=== PATIENT | female | born 1990 | race Caucasian/White ===

== ENCOUNTER 2019-04-08 18:38 | Emergency (ER) | payer OTHER ==
[2019-04-08 18:59] VITALS: TEMP 97.8; BMI 33.3
[2019-04-08] MEDS ORDERED: ALBUTEROL SO4 2.5/IPRATROPIUM 0.5 INH SOL 3 ML VIAL.NEB. NEB ONE ×3 (19:35→20:37)
[2019-04-08] MEDS ORDERED: ONDANSETRON 4 MG TABLET PO ONE (19:35)
--- NOTE | 2019-04-08 19:35 | PDOC ---
History of Present Illness - General Chief Complaint: Nausea/Vomiting Stated Complaint: VOMITTING/NAUSEA/ABD/PAIN Time Seen by Provider: 04/08/19 19:30 History Source: Patient - History of Present Illness Initial Comments: 04/08/19 19:38 Chief complaint: Cough, vomiting Patient is a 28-year-old female with history of asthma who states she has been having upper respiratory symptoms for 2 months, has not seen a doctor. Patient states she vomited once yesterday, vomited once again today. Had abdominal pain yesterday, is better but has some epigastric discomfort today. No shortness of breath, no fever. Has not seen a doctor for any the symptoms. GENERAL/CONSTITUTIONAL: No fever, weakness. dizziness HEAD, EYES, EARS, NOSE AND THROAT: No change in vision. No ear pain or discharge. No sore throat. + Congestion CARDIOVASCULAR: No chest pain RESPIRATORY: No shortness of breath, +cough GASTROINTESTINAL: No pain, nausea, vomiting, diarrhea or constipation GENITOURINARY: No dysuria MUSCULOSKELETAL: No neck or back pain SKIN: No rash NEUROLOGIC: No headache, vertigo, loss of consciousness, or loss of sensation. GENERAL: The patient is awake, alert, and fully oriented, in no acute distress. HEAD: Normal with no signs of trauma. EYES: Pupils equal, round and reactive to light, sclera anicteric, conjunctiva clear. ENT: pharynx: no erythema, no exudate, uvula midline NECK: supple CHEST: Minimal bilateral wheezing, nontender, rr ABD: soft, nontender BACK: no tenderness or signs of injury EXTREMITIES: Normal range of motion, no edema. NEUROLOGICAL: Normal speech, normal gait. SKIN: Warm, Dry Past History - Past Medical History Allergies/Adverse Reactions: Allergies Allergy/AdvReac Type Severity Reaction Status Date / Time No Known Allergies Allergy Verified 04/08/19 18:59 Home Medications: Ambulatory Orders Albuterol Sulfate Inhaler - [Ventolin HFA Inhaler -] 2 inh PO Q4H #1 inh COPD: No - Psycho Social/Smoking Cessation Hx Smoking History: Never smoked *Physical Exam - Vital Signs Last Vital Signs Temp Pulse Resp BP Pulse Ox 97.8 F 101 H 18 117/86 99 04/08/19 18:56 04/08/19 18:56 04/08/19 18:56 04/08/19 18:56 04/08/19 18:56 ED Treatment Course - LABORATORY CBC & Chemistry Diagram: 04/08/19 19:44 04/08/19 19:37 Medical Decision Making - Medical Decision Making 04/08/19 19:40 Well-appearing 28-year-old with URI symptoms for 2 months, found to have minimal wheezing, epigastric pain, vomited once with no tenderness. Patient will get DuoNeb treatment, basic labs, test, be reassessed. Patient serum test was positive, patient states her last menses was March 10. Reevaluation of patient says wheezing is better, scant wheezing. Patient's abdominal pain is still present it is very pinpoint in the mid abdomen , likely not related to but will get ultrasound of abdomen and pelvis to evaluate further given that patient has multitude of symptoms in the ER. [id number] Patient is no longer wheezing, patient has no abdominal pain. Awaiting ultrasound results, UA, quantitative hCG is very low at 63. Patient had an elevated white count but patient does not have any fever and does not appear ill. Patient states she was not aware that she was wheezing prior to today and has not been using her inhaler. Patient looks very comfortable and well now 04/08/19 22:35 Patient states she threw up again, and had an episode of diarrhea. Urine is negative for infection. Patient has no abdominal pain or clinically significant findings. Patient will get Zofran after discussion and 1 more liter of fluid. Patient will need to follow-up with [facility] STATISTICIAN given finding of although she may be having a viral illness Discharge - Discharge Information Problems reviewed: Yes Clinical Impression/Diagnosis: Early stage of Vomiting Qualifiers: Vomiting type: unspecified Vomiting Intractability: unspecified Nausea presence : with nausea Qualified Code(s): R11.2 - Nausea with vomiting, unspecified Asthma Qualifiers: Asthma severity: mild Asthma persistence: unspecified Condition: Stable Disposition: HOME - Admission No - Additional Discharge Information Prescriptions: Albuterol Sulfate Inhaler - [Ventolin HFA Inhaler -] 2 inh PO Q4H #1 inh - Follow up/Referral - Patient Discharge Instructions Patient Printed Discharge Instructions: DI for Vomiting -- Adult Additional Instructions: Use albuterol inhaler, 2 puffs every 4 hours as needed for wheezing. You need to follow-up with an [facility] RESOURCE STATISTICIAN in 2 days for repeat blood work and evaluation for your . If you cannot find one, return to the ER on Tuesday for repeat blood work and evaluation Make sure you have taking vitamins this is important for the formation of a normal spinal cord and the developing baby and should be taken even before you find out you are . So please start these tomorrow. Drink plenty of fluids Return to the ER if getting sicker, continuous vomiting, multiple episodes of diarrhea, getting dehydrated, worsening pain or any other concerns. - Post Discharge Activity
[2019-04-08] MEDS ORDERED: ONDANSETRON *ODT* 4 MG TABLET ONE (19:37)
[2019-04-08 20:01] LABS: BASO % 0.5 % (0-2.0); EOS % 0.7 % (0-4.5); HEMATOCRIT 41.7 % (32.4-45.2); HEMOGLOBIN 14.2 GM/dL (10.7-15.3); LYMPH % 14.7 % (8-40); MCH 31.3 pg (25.7-33.7); MCHC 34.1 g/dl (32.0-36.0); MEAN PLT VOLUME 7.7 fl (7.5-11.1); MONO % 5.8 % (3.8-10.2); NEUT % 78.3 % (42.8-82.8); PLATELET COUNT 342 K/MM3 (134-434); RBC 4.53 M/mm3 (3.60-5.2); RDW 12.8 % (11.6-15.6); WHITE BLOOD COUNT 15.2 K/mm3 (4.0-10.0)
[2019-04-08] MEDS ORDERED: SODIUM CHLORIDE 1,000 ML IV STA ×2 (20:22→22:30)
[2019-04-08 20:26] LABS: BILIRUBIN,TOTAL 0.3 mg/dL (0.2-1); BLOOD UREA NITROGEN 13.5 mg/dL (7-18); CALCIUM 9.2 mg/dL (8.5-10.1); CREATININE 0.7 mg/dL (0.55-1.3); POTASSIUM 3.9 mmol/L (3.5-5.1); TOT PROT 7.5 g/dl (6.4-8.2)
[2019-04-08 21:58] LABS: URINE APPEARANCE CLOUDY; URINE BILIRUBIN NEGATIVE (NEGATIVE); URINE COLOR YELLOW; URINE GLUCOSE (UA) NEGATIVE (NEGATIVE); URINE KETONE TRACE (NEGATIVE); URINE LEUK ESTERASE NEGATIVE (NEGATIVE); URINE NITRITE NEGATIVE (NEGATIVE); URINE PROTEIN NEGATIVE (NEGATIVE)
[2019-04-08] MEDS ORDERED: ONDANSETRON 4 MG/2 ML VIAL IVPUSH ONE (22:29)
[2019-04-08] MEDS ORDERED: ONDANSETRON 4 MG/2 ML VIAL ONE (22:43)
[2019-04-09 00:39] VITALS: BP 124/76; PULSE 97
== END 2019-04-09 00:39 | disposition home or self-care (01) ==
LOC: JERFT 18:38
PROC: 3E0F7GC Introduction of Other Therapeutic Substance into Respiratory Tract, Via Natural or Artificial Opening (ICD-10-PCS; principal; 2019-04-08)
PROC: 3E033GC Introduction of Other Therapeutic Substance into Peripheral Vein, Percutaneous Approach (ICD-10-PCS; 2019-04-08)
PROC: 3E0337Z Introduction of Electrolytic and Water Balance Substance into Peripheral Vein, Percutaneous Approach (ICD-10-PCS; 2019-04-08)
DX: R11.2 Nausea with vomiting, unspecified (principal); O26.891 Other specified pregnancy related conditions, first trimester; Z3A.01 Less than 8 weeks gestation of pregnancy
CPT/HCPCS: 36415; 76705-TC; 76817-TC; 80053; 81003; 83690; 84702; 84703; 85025; 99284-25; J7030

== ENCOUNTER 2019-06-27 17:00 | Emergency (ER) | payer OTHER ==
[2019-06-27 17:04] VITALS: BP 102/83; PULSE 98; TEMP 98.2; BMI 33.3
--- NOTE | 2019-06-27 17:57 | PDOC ---
History of Present Illness - General Chief Complaint: Foreign Body (FB) Stated Complaint: EARACHE Time Seen by Provider: 06/27/19 17:16 History Source: Patient Exam Limitations: No Limitations Past History - Travel Traveled outside of the country in the last 30 days: No Close contact w/someone who was outside of country & ill: No - Past Medical History Allergies/Adverse Reactions: Allergies Allergy/AdvReac Type Severity Reaction Status Date / Time No Known Allergies Allergy Verified 06/27/19 17:04 Home Medications: Ambulatory Orders Albuterol Sulfate Inhaler - [Ventolin HFA Inhaler -] 2 inh PO Q4H #1 inh Pnv No.95/Ferrous Fum/Folic AC [ Vitamin Tablet] 1 each PO 06/27/19 COPD: No - Psycho Social/Smoking Cessation Hx Smoking History: Never smoked Information on smoking cessation initiated: No Hx Alcohol Use: No Drug/Substance Use Hx: No Review of Systems - Review of Systems Able to Perform ROS?: Yes Comments:: 06/27/19 17:53 CONSTITUTIONAL: Absent: fever, chills, diaphoresis, generalized weakness, malaise, loss of appetite HEENT: Present: L ear pain Absent: rhinorrhea, nasal congestion, throat pain, throat swelling, difficulty swallowing, mouth swelling, ear pain, eye pain, visual Changes MUSCULOSKELETAL: Absent: myalgia, arthralgia, joint swelling SKIN: Absent: rash, itching, pallor NEUROLOGIC: Absent: headache, focal weakness or paresthesias, dizziness, unsteady gait, seizure, mental status changes, bladder or bowel incontinence PSYCHIATRIC: Absent: anxiety, depression, suicidal or homicidal ideation, hallucinations. Is the patient limited Maur[place]ian proficient: No *Physical Exam - Vital Signs Last Vital Signs Temp Pulse Resp BP Pulse Ox 98.2 F 98 H 19 102/83 100 06/27/19 17:02 06/27/19 17:02 06/27/19 17:02 06/27/19 17:02 06/27/19 17:02 - Physical Exam 06/27/19 17:55 GENERAL: The patient is awake, alert, and fully oriented, in no acute distress. HEAD: Normal with no signs of trauma. EYES: Pupils equal, round and reactive to light, extraocular movements intact, sclera anicteric, conjunctiva clear. HEENT: No nasal congestion or rhinorrhea. No sinus Tenderness. Mucous membranes are moist. No tonsillar erythema, exudate or edema. Uvula is midline. No TM bulging , dullness or erythema. TMs bilaterally are retracted. No foreign bodies noted , ear canals appear clear. EXTREMITIES: Normal range of motion, no edema. NEUROLOGICAL: Normal speech, normal gait. PSYCH: Normal mood, normal affect. SKIN: Warm, Dry, normal turgor, no rashes or lesions noted. Medical Decision Making - Medical Decision Making 06/27/19 17:55 Patient is a 28-year-old female who presents to the ER with left ear pain. She thought she felt something moving in her ear this morning so she came to the ER for evaluation. She is currently 16 weeks . Denies abdominal pain vaginal bleeding A/P: Left ear pain On exam the left TM is mildly retracted. No foreign bodies in the ear noted. Recommend Tylenol as there is no obvious infection. Discharge home with primary care follow-up. I discussed the physical exam findings, ancillary test results and final diagnoses with the patient. I answered all of the patient's questions. The patient was satisfied with the care received and felt comfortable with the discharge plan and treatment plan. The Patient agrees to follow up with the primary care physician/specialist within 24-72 hours. Return precautions were given. Discharge - Discharge Information Problems reviewed: Yes Clinical Impression/Diagnosis: Left ear pain Condition: Stable Disposition: HOME - Admission No - Follow up/Referral Referrals: Darin Hills MD [Staff Physician] - - Patient Discharge Instructions Patient Printed Discharge Instructions: DI for Ear Pain-Adult Additional Instructions: Your evaluated for your ear pain today. There is no infection or foreign body. You may take Tylenol 650 mg every 6 hours as needed for pain. Please follow-up with your primary care doctor this week. Return to the ER for any new or worsening symptoms. - Post Discharge Activity Work/Back to School Note: Back to Work
== END 2019-06-27 18:02 | disposition home or self-care (01) ==
LOC: JERFT 17:00
DX: H92.02 Otalgia, left ear (principal); O26.892 Other specified pregnancy related conditions, second trimester; Z3A.16 16 weeks gestation of pregnancy
CPT/HCPCS: 99282-25